=== PATIENT | male | born 1945 | race Caucasian/White ===

== ENCOUNTER → 2024-08-31 10:06 | Outpatient (REF) | payer OTHER, SELFPAY ==
[2024-08-31 11:02] LABS: Hematocrit 37.8 % (39.0-52.0); Hemoglobin 12.3 g/dL (13.0-18.0); Mean Corp Hgb Conc. 32.5 g/dL (33.0-37.0); Mean Corpuscular Hgb 30.3 pg (27.0-31.0); Mean Corpuscular Volume 93.1 fL (80.0-94.0); Mean Platelet Volume 11.8 fL (7.4-10.4); Platelet Count 240 10^3/uL (130-400); Red Blood Cell Count 4.06 10^6/uL (4.70-6.10); Red Cell Dist. Width 13.8 % (11.5-14.5); White Blood Cell Count 5.3 10^3/uL (4.8-10.8)
[2024-08-31 11:16] LABS: Urine Albumin 1+ (Neg - Trace); Urine Bilirubin Negative (Negative); Urine Character Clear (Clear); Urine Color Yellow; Urine Glucose Negative (Negative); Urine Ketone Negative (Negative); Urine Leukocyte 2+ (Negative); Urine Nitrite Positive (Negative); Urine Occult Blood 1+ (Negative); Urine Urobilinogen Negative (Neg - 1+)
[2024-08-31 11:25] LABS: Urine Bacteria Many (Negative); Urine Red Blood Cell 0-2 /HPF (0-2); Urine Squamous Cell 0-2 /LPF (Few); Urine White Cell 26-30 /HPF (0-5)
[2024-08-31 11:39] LABS: Blood Urea Nitrogen 41 mg/dl (9-20); Calcium 9.7 mg/dl (8.4-10.2); Carbon Dioxide 22 mmol/L (22-30); Chloride 106 mmol/L (98-107); Glucose 94 mg/dl (70-99); Potassium 4.8 mmol/L (3.5-5.1); Sodium 138 mmol/L (135-145); eGFR > 60.00
== END ==
LOC: OLABN 10:06
PROVIDERS: ATTENDING PHYSICIAN Student in an Organized Health Care Education/Training Program
DX: R35.0 Frequency of micturition (principal)
CPT/HCPCS: 36415; 80048; 81003; 81015; 85027; 87077; 87086; 87186

== ENCOUNTER → 2024-11-08 09:12 | Outpatient (REF) | payer OTHER, SELFPAY ==
[2024-11-08 10:50] LABS: Vitamin D, 25-OH*** 27.8 ng/mL (30-80)
[2024-11-08 11:04] LABS: TSH 1.19 uIU/ml (0.47-4.68)
== END ==
LOC: OLABN 09:12
PROVIDERS: ATTENDING PHYSICIAN Student in an Organized Health Care Education/Training Program
DX: Z13.29 Encounter for screening for other suspected endocrine disorder (principal); E55.9 Vitamin D deficiency, unspecified
CPT/HCPCS: 36415; 82306; 84443